=== PATIENT | female | born 1970 | race Caucasian/White ===

== ENCOUNTER 2016-10-17 09:10 | Emergency (ER) | payer OTHER ==
[~2016-10-17] VITALS: Ht 162.6 cm; Wt 94.1 kg
[2016-10-17 09:12] VITALS: TEMP 37; Ht 162.6 cm; Wt 94.1 kg
[2016-10-17] MEDS ORDERED: SULFAMETHOXAZOLE/TRIMETHOPRIM DS 800/160MG TAB PO STA (09:35)
[2016-10-17] MEDS ORDERED: SULF800T23 PO (09:38)
[2016-10-17] MEDS ORDERED: CEPH500C PO (09:38)
[2016-10-17] MEDS ORDERED: CEPHALEXIN MONOHYDRATE 250 MG CAP PO ONE (09:45)
[2016-10-17 09:54] VITALS: BP 117/67; PULSE 78; O2SAT 98
--- NOTE | 2016-10-17 13:59 | EMERGENCY ROOM VISIT NOTE ---
History Report prepared by Issac: Lv Mancuso Under the Supervision of: Mariola MarieO. First contact with patient: 09:24 Chief Complaint: INFECTION Stated Complaint: ALLERGIC REACTION TO BEE STING History of Present Illness The patient is a 46 year old female who presents to the Emergency Room with complaints of a worsening infection of the right foot for the past two days. The patient states that she was stung by a bee, and it has gotten swollen and red since then. The patient states that the redness started yesterday. She states that she took Benadryl, and she had some chills last night, though she did not have any noticeable fevers. She states that she has not been walking in any streams, and she was not bit or scratched by any animals. She denies any kidney issues in the past. Pt denies headache, change in vision, chest pain, shortness of breath, nausea, vomiting, diarrhea, pain with urination, and melena. Source of History: patient Onset: two days ago Position: foot (right) Quality: other (infection) Timing: worsening Associated Symptoms: + chills, No fevers Note: Associated symptoms: Redness and swelling Review of Systems See HPI for pertinent positives & negatives. A total of 10 systems reviewed and were otherwise negative. Past Medical & Surgical Surgical Problems: (1) H/O oophorectomy Family History FH: cancer Social History Smoking Status: Never Smoker Marital Status: Housing Status: lives with family Occupation Status: employed Current/Historical Medications Scheduled Cephalexin Monohydrate (Keflex), 500 MG PO QID Sulfa/Trimethoprim (Bactrim Ds 800MG/160MG), 1 TAB PO BID Allergies Coded Allergies: No Known Allergies (Unverified , 10/17/16) Physical Exam Vital Signs Date Time Temp Pulse Resp B/P (MAP) Pulse Ox O2 Delivery O2 Flow Rate FiO2 10/17/16 09:54 78 20 117/67 98 Room Air 10/17/16 09:12 37.0 89 18 133/86 96 Room Air Physical Exam GENERAL: Sitting up in bed, alert, well appearing, well nourished, no distress, non-toxic EYE EXAM: normal conjunctiva OROPHARYNX: no exudate, no erythema, lips, buccal mucosa, and tongue normal and mucous membranes are moist NECK: supple, no nuchal rigidity, no adenopathy, non-tender LUNGS: Clear to auscultation. Normal chest wall mechanics HEART: no murmurs, S1 normal and S2 normal ABDOMEN: abdomen soft, non-tender, normo-active bowel sounds, no masses, no rebound or guarding. UPPER EXTREMITIES: upper extremities are grossly normal. LOWER EXTREMITIES: Right lower extremity is erythematous with blistering on the 2nd digit tracking proximally to the 4th digit. It is warm and tender to palpation. No crepitus appreciated. Erythema remains on the dorsal aspect of the foot. No pitting edema. NEURO EXAM: Normal sensorium Medical Decision & Procedures Medications Administered Medications (Trade) Dose Ordered Sig/Judith Route Start Time Stop Time Status Last Admin Dose Admin Trimethoprim/ Sulfamethoxazole (Septra Ds 800/ 160MG Tab) 1 tab NOW STAT PO 10/17/16 09:35 10/17/16 09:36 DC 10/17/16 09:40 1 TAB Cephalexin Monohydrate (Keflex Cap) 500 mg NOW ONCE PO 10/17/16 09:45 10/17/16 09:46 DC 10/17/16 09:39 500 MG ED Course ED COURSE: Vital signs were reviewed and showed normal vitals The patients medical record was reviewed The above diagnostic studies were performed and reviewed. ED treatments and interventions as stated above. 0924: The patient was evaluated in room A11. A complete history and physical examination was performed. 0935: Septra Ds 800/160mg Tab 1 Tab PO 0945: Keflex Cap 500mg PO 0950: Upon reevaluation, the patient is resting.I discussed my findings with the patient and she understands and agrees with the treatment plan. Based on the patients age, coexisting illnesses, exam and lab findings the decision to treat as an outpatient was made. The patient remained stable while under my care. The patient appeared well at the time of discharge. Medical Decision Differential diagnosis includes etiologies such as cellulitis, abscess, MRSA infection, DVT, necrotizing fasciitis, dermatitis, drug eruption, as well as others were entertained. Patient is a 46-year-old female who presents the ER following being stung on her right second toe on the dorsal aspect. She notes she has been having worsening redness and pain. She watched a yellowjacket landed on her and stinger. No fevers. Skin is warm and tender. No crepitus. Patient was given Keflex and Bactrim and treated as a cellulitis. Patient was updated bedside. She'll follow up with her dad who is PCP in 48 hours. Discussed with Pt concerning signs and symptoms to watch out for. Pt was instructed to follow up with their PCP and discussed with the patient their option to return to the ED at anytime for persistent or worsening symptoms. The appropriate anticipatory guidance and out-patient management, including indications for return to the emergency department, were explained at length to the patient and understood. Medication Reconcilliation Current Medication List: was personally reviewed by me Blood Pressure Screening Patient's blood pressure: Normal blood pressure Impression Primary Impression: Cellulitis Scribe Attestation The scribe's documentation has been prepared under my direction and personally reviewed by me in its entirety. I confirm that the note above accurately reflects all work, treatment, procedures, and medical decision making performed by me. Departure Information Dispostion Home / Self-Care Prescriptions Cephalexin Monohydrate (Keflex) 500 Mg Cap 500 MG PO QID, #40 CAP Prov: Faraz Padgett, DO 10/17/16 Sulfa/Trimethoprim (Bactrim Ds 800MG/160MG) Tab 1 TAB PO BID, #14 TAB Prov: Faraz Padgett, DO 10/17/16 Referrals No Doctor, Assigned (PCP) Forms HOME CARE DOCUMENTATION FORM, IMPORTANT VISIT INFORMATION, WORK / SCHOOL INSTRUCTIONS Patient Instructions Cellulitis - [facility], My [facility] Additional Instructions Please follow up with your primary care doctor or if you are a student, [facility] with in the next 24 hours. Any worsening of your symptoms, please return to the ED immediately. This includes any fevers greater than 100.4, worsening pain, chest pain, shortness breath, persistent nausea, vomiting, unable to eat or drink, or any other concerning signs or symptoms from your standpoint. Please take antibiotics as prescribed. Please follow up with a doctor within 2 days for repeat evaluation of your foot. Any worsening of the redness, fevers greater than 100.4, pain or any other concerning signs or symptoms please return to the ER immediately. Problem Qualifiers Primary Impression: Cellulitis Site of cellulitis: unspecified site Qualified Codes: L03.90 - Cellulitis, unspecified
== END 2016-10-17 09:58 | disposition home or self-care (01) ==
LOC: C.EDB 09:12 → C.EDA 09:58
DX: L03.115 Cellulitis of right lower limb (principal)